=== PATIENT | female | born 1955 | race Two or more races ===

== ENCOUNTER 2023-09-16 17:38 | Emergency (ER) | payer OTHER ==
[~2023-09-16] VITALS: Ht 154.9 cm; Wt 69.9 kg
[2023-09-16] MEDS ORDERED: OMEPRAZOLE MAGN20 MG (17:52)
[2023-09-16] MEDS ORDERED: CHILDREN'S ASPI81 MG (17:53)
[2023-09-16] MEDS ORDERED: REPATHA SY140 MG/1 M (17:53)
[2023-09-16 19:04] LABS: URINE APPEARANCE Clear; URINE BILIRRUBIN Negative (NEGATIVE); URINE BLOOD Moderate; URINE COLOR Yellow; URINE GLUCOSE Negative (NEGATIVE); URINE KETONE Negative (NEGATIVE); URINE LEUKOCYTE Negative; URINE NITRATE Negative; URINE PROTEIN Negative (NEGATIVE); URINE UROBILINOGEN 0.2 E.U./dl
[2023-09-16 19:05] LABS: HEMATOCRIT 38.5 % (36.0-45.00); HEMOGLOBIN 12.9 g/dL (12.0-15.00); MEAN CORPUSCULAR HEMOGLOBIN 29.4 pg (27.00-32.0); MEAN CORPUSCULAR HGB CONC 33.5 g/dl (32.0-36.0); PLATELET COUNT 275 K/uL (150-450); RED BLOOD COUNT 4.38 M/uL (4.00-6.00); RED CELL DISTRIBUTION WIDTH 14.4 % (11.5-14.5)
[2023-09-16 19:07] LABS: URINE EPITHELIAL CELLS 3.5 uL (0.0-38.8); URINE RBC 183.7 uL (0.0-20.8); URINE WBC 21.4 uL (0.0-23.2)
[2023-09-16 19:20] LABS: CALCIUM 9.2 mg/dL (8.5-10.1); CREATININE SERUM 0.75 mg/dL (0.55-1.02); GFR 76.39; POTASSIUM 4.01 mEq/L (3.5-5.1)
[2023-09-16] MEDS ORDERED: CEPHALEXIN500 M1 PO (21:35)
== END 2023-09-16 21:52 ==
LOC: ER 17:40
PROVIDERS: Nurse Practitioner Family
DX: N30.81 Other cystitis with hematuria (principal); N28.1 Cyst of kidney, acquired; K57.30 Diverticulosis of large intestine without perforation or abscess without bleeding; I70.8 Atherosclerosis of other arteries; Z85.828 Personal history of other malignant neoplasm of skin